=== PATIENT | male | born 1985 | race Caucasian/White ===

== ENCOUNTER 2016-05-06 00:02 | Emergency (ER) | payer OTHER ==
[~2016-05-06] VITALS: Ht 172.7 cm; Wt 132.4 kg
[2016-05-06] MEDS ORDERED: BREO1INH INH (00:27)
[2016-05-06] MEDS ORDERED: ALBU83IN INH (00:27)
[2016-05-06] MEDS ORDERED: LEVO175T2 PO (00:27)
[2016-05-06] MEDS ORDERED: ZYRT10TA2 PO (00:27)
== END 2016-05-06 02:15 | disposition left against medical advice (07) ==
LOC: M ED 01:05
DX: Z53.21 Procedure and treatment not carried out due to patient leaving prior to being seen by health care provider (principal)

== ENCOUNTER → 2016-08-14 | Outpatient (REF) | payer OTHER ==
[~2016-08-14] MED LIST: ALBU83IN INH; BREO1INH INH; LEVO175T2 PO; ZYRT10TA2 PO
== END ==
LOC: M LAB REF 17:16
PROVIDERS: ATTEND Internal Medicine
DX: E89.0 Postprocedural hypothyroidism (principal)

== ENCOUNTER → 2020-05-05 | Outpatient (CLI) | payer OTHER ==
[~2020-05-05] MED LIST changes: +ADV250INH INH; +CETI10CH PO; +OMEP40CA97 PO; +ZYRT10CA5 PO; -ZYRT10TA2 PO
== END ==
LOC: M LABSMTC 09:12
PROVIDERS: ATTEND Anesthesiology
DX: Z01.812 Encounter for preprocedural laboratory examination (principal); Z20.822 Contact with and (suspected) exposure to COVID-19

== ENCOUNTER 2020-05-10 06:42 | Day surgery (SDC) | payer OTHER ==
[~2020-05-10] VITALS: Ht 175.3 cm; Wt 122.9 kg
[~2020-05-10 06:42] MED LIST changes: +NS 1,000 ML IV ONE
[2020-05-10] MEDS ORDERED: fentaNYL 100 MCG/2 ML INJECTION (J3010) As Ordered ONE (07:11)
[2020-05-10] MEDS ORDERED: LIDOCAINE 2% 100MG/5ML SDV (FOR ANES.) As Ordered ONE (07:46)
[2020-05-10] MEDS ORDERED: propofoL 200 MG/20 ML VIAL As Ordered ONE ×3 (07:46→08:05)
--- NOTE | 2020-05-10 07:48 | ROOR ---
Patient Name: Santos Jiménez Procedure Date: 05/10/2020 7:29 AM Date of : 1985 Age: 34 Room: [facility] Gender: Male Note Status: Finalized Procedure: Upper Endoscopy + Biopsies Indications: Heartburn, Exclusion of Mahan's esophagus Providers: Eagle Vazquez MD Referring MD: Lise Silver DO Requesting Provider: Medicines: Monitored Anesthesia Care Complications: No immediate complications. Procedure: Pre-Anesthesia Assessment: - The heart rate, respiratory rate, oxygen saturations, blood pressure, adequacy of pulmonary ventilation, and response to care were monitored throughout the procedure. The Endoscope was introduced through the mouth, and advanced to the second part of duodenum. The upper GI endoscopy was accomplished without difficulty. The patient tolerated the procedure well. Findings: The Z-line was irregular and was found 40 cm from the incisors. Multiple biopsies were obtained with cold forceps for evaluation to rule out Mahan's Esophagus randomly at the gastroesophageal junction. Multiple small pedunculated and sessile fundic gland polyps with no stigmata of recent bleeding were found on the greater curvature of the stomach. Biopsies were taken with a cold forceps for histology. The exam of the duodenum was otherwise normal. Impression: - Z-line irregular, 40 cm from the incisors. - Multiple fundic gland polyps. Biopsied. - Multiple biopsies were obtained at the gastroesophageal junction. - The examination was otherwise normal. Recommendation: - Await pathology results. - Discharge patient to home. - Continue present medications. - Await pathology results. - Telephone GI clinic for pathology results in 1 week. - Return to referring physician. - The findings and recommendations were discussed with the patient. Procedure Code(s): --- Professional --- 20995, Esophagogastroduodenoscopy, flexible, transoral; with biopsy, single or multiple Diagnosis Code(s): --- Professional --- K22.8, Other specified diseases of esophagus K31.7, Polyp of stomach and duodenum R12, Heartburn CPT copyright 2019 [employer]. All rights reserved. The codes documented in this report are preliminary and upon national stormwater leader review may be revised to meet current compliance requirements. Eagle Vazquez MD Eagle Vazquez MD 05/10/2020 7:48:04 AM Electronically signed by Eagle Vazquez MD Number of Addenda: 0 Note Initiated On: 05/10/2020 7:29 AM Estimated Blood Loss: Estimated blood loss: none.
--- NOTE | 2020-05-10 08:25 | ROOR ---
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 Procedure: Pre-Anesthesia Assessment: - The heart rate, respiratory rate, oxygen saturations, blood pressure, adequacy of pulmonary ventilation, and response to care were monitored throughout the procedure. The Colonoscope was introduced through the anus and advanced to the cecum, identified by appendiceal orifice and ileocecal valve. The colonoscopy was performed without difficulty. The patient tolerated the procedure well. The quality of the bowel preparation was good. Findings: The perianal and digital rectal examinations were normal. Multiple sessile polyps were found in the entire colon. The polyps were small in size. These polyps were removed with a cold snare. Resection and retrieval were complete. To prevent bleeding after the polypectomy, three hemostatic clips were successfully placed (MR conditional). There was no bleeding at the end of the procedure. Multiple sessile polyps were found in the recto-sigmoid colon. The polyps were small in size. These polyps were removed with a jumbo cold forceps. Resection and retrieval were complete. The exam was otherwise without abnormality on direct and retroflexion views. The terminal ileum appeared normal. Impression: - Multiple small polyps in the entire colon, removed with a cold snare. Resected and retrieved. Clips (MR conditional) were placed. - Multiple small polyps at the recto-sigmoid colon, removed with a jumbo cold forceps. Resected and retrieved. - The examination was otherwise normal on direct and retroflexion views. - The examined portion of the ileum was normal. - The exam was otherwise normal to the cecum. Recommendation: - Patient has a contact number available for emergencies. The signs and symptoms of potential delayed complications were discussed with the patient. Return to normal activities tomorrow. Written discharge instructions were provided to the patient. - High fiber diet. - Discharge patient to home. - Continue present medications. - Await pathology results. - Telephone GI clinic for pathology results in 1 week. - Repeat colonoscopy date to be determined after pending pathology results are reviewed for surveillance. - Return to referring physician. - The findings and recommendations were discussed with the patient. Procedure Code(s): --- Professional --- 71130, Colonoscopy, flexible; with removal of tumor(s), polyp(s), or other lesion(s) by snare technique 54256, 59, Colonoscopy, flexible; with biopsy, single or multiple Diagnosis Code(s): --- Professional --- Z12.11, Encounter for screening for malignant neoplasm of colon K63.5, Polyp of colon CPT copyright 2019 [employer]. All rights reserved. The codes documented in this report are preliminary and upon fitness instructor review may be revised to meet current compliance requirements. Eagle Vazquez MD Eagle Vazquez MD 05/10/2020 8:25:38 AM Electronically signed by Eagle Vazquez MD Number of Addenda: 0 Note Initiated On: 05/10/2020 7:30 AM Estimated Blood Loss: Estimated blood loss: none.
[2020-05-10 08:45] VITALS: BP 118/65
== END 2020-05-10 08:52 | disposition home or self-care (01) ==
LOC: M OPP 06:42
PROVIDERS: ATTEND Internal Medicine Gastroenterology
DX: Z12.11 Encounter for screening for malignant neoplasm of colon (principal); D12.6 Benign neoplasm of colon, unspecified; K22.8 Other specified diseases of esophagus; K31.7 Polyp of stomach and duodenum; R12 Heartburn; E03.9 Hypothyroidism, unspecified; Z79.899 Other long term (current) drug therapy; Z88.5 Allergy status to narcotic agent
CPT/HCPCS: 43239; 45380; 45385; 88305; J3010

== ENCOUNTER 2020-08-04 20:29 | Emergency (ER) | payer OTHER ==
[~2020-08-04] VITALS: Ht 172.7 cm; Wt 127.7 kg
[~2020-08-04 20:29] MED LIST changes: -NS 1,000 ML IV ONE
[2020-08-04] MEDS ORDERED: ZITHTAB2 PO (20:39)
[2020-08-04] MEDS ORDERED: PRED20TA (20:39)
--- NOTE | 2020-08-04 21:14 | REPVR ---
PROCEDURE INFORMATION: Exam: XR Chest Exam date and time: 08/04/2020 9:01 PM Age: 34 years old Clinical indication: Other: Cough; Additional info: Cough, covid pos TECHNIQUE: Imaging protocol: XR of the chest. Views: 1 view. COMPARISON: No relevant prior studies available. FINDINGS: Lungs: Unremarkable. No consolidation. Pleural spaces: Unremarkable. No pleural effusion. No pneumothorax. Heart/Mediastinum: Unremarkable. No cardiomegaly. Bones/joints: Unremarkable. IMPRESSION: No acute findings. Electronically signed by: Kale Nolasco On 08/04/2020 21:13:49 PM
[2020-08-04] MEDS: COMBIVENT RESPIMAT 100-20MCG INHALER 4GM INH SCH ×3 (21:31→22:11)
[2020-08-04 21:42] LABS: BASO % 0.2 % (0.0-1.0); EOS % 0.2 % (0.0-3.0); HEMATOCRIT 39.8 % (42.0-52.0); HEMOGLOBIN 12.6 g/dl (13.5-17.5); LYMPH # 1.4 10^3/uL (1.5-5.0); LYMPH % 15.4 % (24.0-44.0); MEAN CORPUSCULAR HGB CONC 31.7 g/dl (32.0-36.5); MEAN CORPUSCULAR VOLUME 88.4 fl (80.0-96.0); MONO # 0.6 10^3/uL (0.0-0.8); MONO % 6.5 % (2.0-8.0); NEUTROPHILS # 6.8 10^3/uL (1.5-8.5); NEUTROPHILS % 77.1 % (36.0-66.0); PLATELET COUNT, AUTOMATED 154 10^3/uL (150-450); WHITE BLOOD COUNT 8.8 10^3/uL (4.0-10.0)
[2020-08-04 21:59] LABS: PARTIAL THROMBOPLASTIN TIME 28.6 SECONDS (24.2-38.5); PROTHROMBIN TIME 14.4 SECONDS (12.5-14.3)
[2020-08-04 22:11] LABS: ALBUMIN 3.9 GM/DL (3.2-5.2); ALT/SGPT 23 U/L (12-78); BILIRUBIN,TOTAL 0.4 MG/DL (0.2-1.0); BLOOD UREA NITROGEN 15 MG/DL (7-18); C REACTIVE PROTEIN QUANTITATIV 0.34 MG/DL (0.00-0.30); CALCIUM LEVEL 8.3 MG/DL (8.5-10.1); CARBON DIOXIDE LEVEL 26 MEQ/L (21-32); CHLORIDE LEVEL 108 MEQ/L (98-107); CK-MB VALUE MASS 1.9 NG/ML (<3.6); CPK CREATINE PHOSPHOKINASE 97 U/L (39-308); CREATININE FOR GFR 0.76 MG/DL (0.70-1.30); FERRITIN 22 NG/ML (26-388); GLOMERULAR FILTRATION RATE > 60.0 (>60); GLUCOSE, FASTING 98 MG/DL (70-100); LDH LACTATE DEHYDROGENASE 155 U/L (87-241); MB/CK RELATIVE INDEX 1.96 (< OR =4); POTASSIUM SERUM 3.8 MEQ/L (3.5-5.1); SODIUM LEVEL 141 MEQ/L (136-145); TOTAL PROTEIN 6.7 GM/DL (6.4-8.2); TROPONIN I < 0.02 NG/ML (< 0.10)
[2020-08-04] MEDS ORDERED: ISOVUE-370 76% 100ML VIAL As Ordered ONE (22:33)
[2020-08-04 22:52] LABS: D-DIMER QUANT < 270 ng/ml (<500)
[2020-08-04 23:00] VITALS: BP 166/72
--- NOTE | 2020-08-04 23:42 | REPVR ---
PROCEDURE INFORMATION: Exam: CTA Chest With Contrast Exam date and time: 08/04/2020 11:12 PM Age: 34 years old Clinical indication: Right sided chest pain/ covid/ R/O pe TECHNIQUE: Imaging protocol: Computed tomographic angiography of the chest with contrast. 3D rendering (Not supervised by radiologist): MIP and/or 3D reconstructed images were created by the technologist. Radiation optimization: All CT scans at this facility use at least one of these dose optimization techniques: automated exposure control; mA and/or kV adjustment per patient size (includes targeted exams where dose is matched to clinical indication); or iterative reconstruction. Contrast material: ISOVUE 370; Contrast volume: 75 ml; Contrast route: INTRAVENOUS (IV); COMPARISON: CR Chest, 2 view PA, Lat 08/04/2020 8:53 PM FINDINGS: Pulmonary arteries: No pulmonary embolism. Aorta: The thoracic aorta is intact and patent. There is no thoracic aortic aneurysm, pseudoaneurysm, penetrating atherosclerotic ulcer, intramural hematoma, or dissection. Great vessels off aortic arch: The brachiocephalic artery, imaged proximal portions of the common carotid arteries, imaged proximal portions of the vertebral arteries, and right subclavian artery are intact. No stenosis or occlusion of these vessels is noted. The left subclavian artery is obscured by streak artifact from contrast material in the left subclavian vein. Trachea: Normal. Bronchial tree: Normal. Lungs: The lungs are clear. There is no lung consolidation, pulmonary infarct, or mass. No emphysematous changes or interstitial lung disease is noted. Pleural spaces: Normal. No pneumothorax or pleural effusion. Heart: No cardiomegaly or pericardial effusion. The ratio of the diameter of the right ventricle to the diameter of the left ventricle measures less than 1, which is within normal limits and there is no CT evidence for a right ventricular strain. Mediastinal space: No mediastinal mass, fluid collection, or pneumomediastinum. Lymph nodes: No enlarged lymph nodes. Adrenal glands: Normal. No adrenal mass is noted. Bones/joints: There is no fracture or dislocation. No suspicious osteolytic or osteoblastic lesion. There are Schmorl's nodes at several levels in the thoracic spine. Soft tissues: There is severe bilateral gynecomastia. IMPRESSION: 1. No acute findings in the chest. No pulmonary embolism. 2. No CT findings present to indicate pneumonia. (Note: CT may be negative in the early stages of COVID-19.) (Reference: Charles) 3. Severe bilateral gynecomastia. REFERENCES: Charles Wayne, et al., Rad[employer] Society of [place] Expert Consensus Statement on Reporting Chest CT Findings Related to COVID-19. Endorsed by the Society of Thoracic Radiology, the [place] [employer], and RSNA. Published May 31, 2019. Electronically signed by: Reilly Gonzalez On 08/04/2020 23:41:57 PM
[2020-08-05] MEDS ORDERED: KETO10TAB PO (00:13)
[2020-08-05] MEDS ORDERED: KETOROLAC 30 MG/ML 1ML VIAL IV ONE (00:15)
--- NOTE | 2020-08-05 08:24 | ED PDOC ---
Post-Departure Follow-Up rdiology report faxed to Padmini Sorenson MD August 05, 2020 08:24
--- NOTE | 2020-08-05 09:34 | ECGEPIP ---
[facility] - ED Test Date: 2020-08-04 Pat Name: LIANE BOOTH Department: Room: - Gender: Male Hand Tacker: : 1985 Requested By: MARICARMEN Samson Order Number: [id number] Reading MD: Padmini Dale Measurements Intervals [place] Rate: 81 P: 52 KS: 136 QRS: 47 QRSD: 112 T: 5 QT: 366 QTc: 425 Interpretive Statements Normal sinus rhythm with sinus arrhythmia ivcd No prior Electronically Signed on 08-05-2020 9:34:04 EDT by Padmini Dale
== END 2020-08-05 00:40 | disposition home or self-care (01) ==
LOC: M ED 20:29
DX: U07.1 COVID-19 (principal); J45.909 Unspecified asthma, uncomplicated; E03.9 Hypothyroidism, unspecified; Z79.899 Other long term (current) drug therapy; Z79.890 Hormone replacement therapy; Z88.5 Allergy status to narcotic agent
CPT/HCPCS: 71045; 71275; 80053; 82550; 82553; 82728; 83605; 83615; 84145; 84484; 85025; 85379; 85610; 85730; 86140; 93005; 93041; 94640; 94760; 96374; 99285; J1885; Q9967

== ENCOUNTER → 2020-10-18 | Outpatient (REF) | payer OTHER ==
[~2020-10-18] MED LIST changes: +KETO10TAB PO; +OMEP40CA4 PO; -OMEP40CA97 PO; +PRED20TA; +ZITHTAB2 PO
== END ==
LOC: M LAB REF 15:28
PROVIDERS: ATTEND Otolaryngology
DX: D49.0 Neoplasm of unspecified behavior of digestive system (principal)

== ENCOUNTER 2020-11-01 21:38 | Emergency (ER) | payer OTHER ==
[~2020-11-01] VITALS: Ht 172.7 cm; Wt 123.1 kg
[2020-11-02 01:59] VITALS: BP 144/94
== END 2020-11-02 02:03 | disposition left against medical advice (07) ==
LOC: M ED 21:38
DX: Z53.29 Procedure and treatment not carried out because of patient's decision for other reasons (principal)

== ENCOUNTER → 2020-12-15 | Outpatient (REF) | payer OTHER ==
[2020-12-15 16:59] LABS: RSV AMPLIFICATION POSITIVE (NEGATIVE)
== END ==
LOC: M LAB REF 16:18
PROVIDERS: ATTEND Physician Assistant
DX: R05.9 Cough, unspecified (principal)

== ENCOUNTER 2021-05-02 06:15 | Emergency (ER) | payer OTHER ==
[~2021-05-02] VITALS: Ht 172.7 cm; Wt 125.5 kg
[2021-05-02 06:16] VITALS: BP 136/60
[2021-05-02] MEDS ORDERED: KETOROLAC 30 MG/ML 1ML VIAL IV ONE (07:15)
[2021-05-02] MEDS ORDERED: NS 1,000 ML IV ONE (07:15)
[2021-05-02] MEDS ORDERED: PANTOPRAZOLE 40MG VIAL (C9113 PER 1) IV ONE (07:15)
[2021-05-02 07:56] LABS: BASO % 0.2 % (0.0-1.0); EOS # 0.1 10^3/uL (0.0-0.5); EOS % 0.8 % (0.0-3.0); HEMATOCRIT 41.4 % (42.0-52.0); HEMOGLOBIN 13.3 g/dl (13.5-17.5); LYMPH # 0.8 10^3/uL (1.5-5.0); LYMPH % 12.2 % (24.0-44.0); MEAN CORPUSCULAR HEMOGLOBIN 27.9 pg (27.0-33.0); MEAN CORPUSCULAR HGB CONC 32.1 g/dl (32.0-36.5); MEAN CORPUSCULAR VOLUME 86.8 fl (80.0-96.0); MONO # 0.5 10^3/uL (0.0-0.8); MONO % 8.5 % (2.0-8.0); NEUTROPHILS # 4.8 10^3/uL (1.5-8.5); PLATELET COUNT, AUTOMATED 134 10^3/uL (150-450); RED BLOOD COUNT 4.77 10^6/uL (4.30-6.10); WHITE BLOOD COUNT 6.1 10^3/uL (4.0-10.0)
[2021-05-02 08:33] LABS: ALBUMIN 3.7 GM/DL (3.2-5.2); BILIRUBIN,DIRECT 0.2 MG/DL (0.0-0.2); BILIRUBIN,TOTAL 1.1 MG/DL (0.2-1.0); TOTAL PROTEIN 6.9 GM/DL (6.4-8.2)
[2021-05-02] MEDS ORDERED: ISOVUE-370 76% 100ML VIAL As Ordered ONE (08:43)
== END 2021-05-02 11:24 | disposition home or self-care (01) ==
LOC: M ED 06:15
DX: R10.11 Right upper quadrant pain (principal); K76.0 Fatty (change of) liver, not elsewhere classified; I88.0 Nonspecific mesenteric lymphadenitis; N28.9 Disorder of kidney and ureter, unspecified; E03.9 Hypothyroidism, unspecified; K21.9 Gastro-esophageal reflux disease without esophagitis; J45.909 Unspecified asthma, uncomplicated; Z88.6 Allergy status to analgesic agent; Z79.890 Hormone replacement therapy; Z79.899 Other long term (current) drug therapy
CPT/HCPCS: 74177; 76705; 80047; 80076; 83605; 83690; 85025; 87426; 93041; 96361; 96374; 96375; 99284; C9113; J1885; Q9967

== ENCOUNTER → 2021-06-02 | Outpatient (CLI) | payer OTHER | LOC: M RAD 07:12 | PROVIDERS: ATTEND Internal Medicine | DX: N28.9 Disorder of kidney and ureter, unspecified (principal) ==

== ENCOUNTER → 2021-12-12 | Outpatient (CLI) | payer OTHER ==
[~2021-12-12] MED LIST changes: +ALBU2.5V10 INH; -ALBU83IN INH
== END ==
LOC: M RAD 07:30
PROVIDERS: ATTEND Internal Medicine
DX: N28.1 Cyst of kidney, acquired (principal)

== ENCOUNTER → 2022-01-05 | Outpatient (CLI) | payer OTHER ==
[~2022-01-05] MED LIST changes: +PROHANCE 279.3MG/ML 15ML VIAL ONE; +PROHANCE 279.3MG/ML 5ML VIAL ONE
== END ==
LOC: M PLAIMG 08:39
PROVIDERS: ATTEND Internal Medicine
DX: D18.09 Hemangioma of other sites (principal)

== ENCOUNTER → 2022-02-05 | Outpatient (REF) | payer OTHER ==
[~2022-02-05] MED LIST changes: -PROHANCE 279.3MG/ML 15ML VIAL ONE; -PROHANCE 279.3MG/ML 5ML VIAL ONE
[2022-02-05 15:28] LABS: APPEARANCE, URINE MANUAL CLEAR (CLEAR); BILIRUBIN, URINE MANUAL NEGATIVE (NEGATIVE); BLOOD URINE MANUAL NEGATIVE (NEGATIVE); COLOR, URINE MANUAL YELLOW (YELLOW); GLUCOSE, URINE (UA) MANUAL NEGATIVE (NEGATIVE); KETONE, URINE MANUAL NEGATIVE (NEGATIVE); LEUKOCYTE ESTERASE, URINE MAN NEGATIVE (NEGATIVE); NITRITE, URINE MANUAL NEGATIVE (NEGATIVE); PROTEIN, URINE MANUAL NEGATIVE (NEGATIVE); SPECIFIC GRAVITY,URINE MANUAL 1.025 (1.002-1.035); UROBILINOGEN, URINE MANUAL NORMAL (NORMAL)
== END ==
LOC: M LAB REF 13:03
PROVIDERS: ATTEND Internal Medicine
DX: Z01.818 Encounter for other preprocedural examination (principal)

== ENCOUNTER → 2022-02-06 | Outpatient (REF) | payer OTHER | LOC: M WUC 12:12 | PROVIDERS: ATTEND Physician Assistant | DX: J06.9 Acute upper respiratory infection, unspecified (principal); R05.9 Cough, unspecified ==

== ENCOUNTER 2022-02-08 21:01 | Emergency (ER) | payer OTHER ==
[~2022-02-08] VITALS: Ht 172.7 cm; Wt 131.1 kg
[2022-02-08 21:03] VITALS: BP 158/75
== END 2022-02-09 | disposition left against medical advice (07) ==
LOC: M ED 21:01
DX: Z53.21 Procedure and treatment not carried out due to patient leaving prior to being seen by health care provider (principal)

== ENCOUNTER → 2022-05-20 | Outpatient (CLI) | payer OTHER ==
[2022-05-20 16:51] LABS: BASO # 0.1 10^3/uL (0.0-0.2); BASO % 0.7 % (0.0-1.0); EOS # 0.1 10^3/uL (0.0-0.5); EOS % 1.4 % (0.0-3.0); HEMATOCRIT 42.1 % (42.0-52.0); HEMOGLOBIN 13.4 g/dl (13.5-17.5); LYMPH % 27.8 % (24.0-44.0); MEAN CORPUSCULAR HEMOGLOBIN 28.2 pg (27.0-33.0); MEAN CORPUSCULAR HGB CONC 31.8 g/dl (32.0-36.5); MEAN CORPUSCULAR VOLUME 88.4 fl (80.0-96.0); MONO # 0.6 10^3/uL (0.0-0.8); MONO % 7.8 % (2.0-8.0); NEUTROPHILS # 4.5 10^3/uL (1.5-8.5); NEUTROPHILS % 61.9 % (36.0-66.0); PLATELET COUNT, AUTOMATED 152 10^3/uL (150-450); RED BLOOD COUNT 4.76 10^6/uL (4.30-6.10); WHITE BLOOD COUNT 7.3 10^3/uL (4.0-10.0)
[2022-05-20 18:12] LABS: ALKALINE PHOSPHATASE 59 U/L (46-116); ALT/SGPT 37 U/L (7.0-40); AST/SGOT 23 U/L (<34); BILIRUBIN,TOTAL 0.6 MG/DL (0.3-1.2); BLOOD UREA NITROGEN 17 MG/DL (9-23); CALCIUM LEVEL 9.3 MG/DL (8.5-10.1); CARBON DIOXIDE LEVEL 29 MMOL/L (20-31); CHLORIDE LEVEL 106 MMOL/L (98-107); CREATININE FOR GFR 0.87 MG/DL (0.70-1.30); GLOMERULAR FILTRATION RATE > 60.0 (>60); GLUCOSE, FASTING 84 MG/DL (60-100); POTASSIUM SERUM 4.4 MMOL/L (3.5-5.1); SODIUM LEVEL 141 MMOL/L (136-145); TOTAL PROTEIN 6.7 G/DL (5.7-8.2)
== END ==
LOC: M RAD 15:57
PROVIDERS: ATTEND Physician Assistant Medical
DX: C64.2 Malignant neoplasm of left kidney, except renal pelvis (principal)

== ENCOUNTER → 2022-11-19 | Outpatient (CLI) | payer OTHER ==
[2022-11-19 17:08] LABS: HEMATOCRIT 40.6 % (42.0-52.0); HEMOGLOBIN 13.1 g/dl (13.5-17.5); MEAN CORPUSCULAR HEMOGLOBIN 28.2 pg (27.0-33.0); MEAN CORPUSCULAR HGB CONC 32.3 g/dl (32.0-36.5); MEAN CORPUSCULAR VOLUME 87.5 fl (80.0-96.0); PLATELET COUNT, AUTOMATED 156 10^3/uL (150-450); RED BLOOD COUNT 4.64 10^6/uL (4.30-6.10); WHITE BLOOD COUNT 7.2 10^3/uL (4.0-10.0)
[2022-11-19 17:30] LABS: BLOOD UREA NITROGEN 18 MG/DL (9-23); CALCIUM LEVEL 9.2 MG/DL (8.5-10.1); CARBON DIOXIDE LEVEL 29 MMOL/L (20-31); CHLORIDE LEVEL 108 MMOL/L (98-107); CREATININE FOR GFR 0.87 MG/DL (0.70-1.30); GLOMERULAR FILTRATION RATE > 60.0 (>60); GLUCOSE, FASTING 89 MG/DL (60-100); POTASSIUM SERUM 4.1 MMOL/L (3.5-5.1); SODIUM LEVEL 143 MMOL/L (136-145)
== END ==
LOC: M LAB 16:04
PROVIDERS: ATTEND Physician Assistant Medical
DX: C64.2 Malignant neoplasm of left kidney, except renal pelvis (principal)

== ENCOUNTER → 2022-11-23 | Outpatient (CLI) | payer OTHER ==
[~2022-11-23] MED LIST changes: +GASTROGRAFIN SOLUTION 30ML As Ordered ONE; +ISOVUE-370 76% 100ML VIAL As Ordered ONE
== END ==
LOC: M RAD 10:59
PROVIDERS: ATTEND Physician Assistant Medical
DX: C64.2 Malignant neoplasm of left kidney, except renal pelvis (principal)

== ENCOUNTER → 2022-11-26 | Outpatient (CLI) | payer OTHER ==
[~2022-11-26] MED LIST changes: -GASTROGRAFIN SOLUTION 30ML As Ordered ONE; -ISOVUE-370 76% 100ML VIAL As Ordered ONE
== END ==
LOC: M RAD 15:16
PROVIDERS: ATTEND Physician Assistant Medical
DX: C64.2 Malignant neoplasm of left kidney, except renal pelvis (principal)

== ENCOUNTER 2023-03-02 06:51 | Emergency (ER) | payer OTHER ==
[~2023-03-02] VITALS: Ht 172.7 cm; Wt 134.5 kg
[2023-03-02] MEDS ORDERED: LIDOCAINE 2% MDV 20ML VIAL SC ONE (07:45)
[2023-03-02] MEDS ORDERED: BOOSTRIX VACCINE (TETANUS/DIPHTH/ACEL. PERTUSSIS) 0.5ML SYR IM.IMMUN ONE (08:00)
[2023-03-02] MEDS ORDERED: ceFAZolin SOD 1 GM in D5W MINI-BAG PLUS 50 ML IV ONE (08:00)
[2023-03-02] MEDS ORDERED: CEPH500C PO (09:24)
[2023-03-02 10:02] VITALS: BP 123/58; TEMP 97.7; O2SAT 98
== END 2023-03-02 10:03 | disposition home or self-care (01) ==
LOC: M ED 06:51
DX: S61.012A Laceration without foreign body of left thumb without damage to nail, initial encounter (principal); S64.32XA Injury of digital nerve of left thumb, initial encounter; W26.0XXA Contact with knife, initial encounter; F17.200 Nicotine dependence, unspecified, uncomplicated; K21.9 Gastro-esophageal reflux disease without esophagitis; J45.909 Unspecified asthma, uncomplicated; F10.10 Alcohol abuse, uncomplicated; Y92.009 Unspecified place in unspecified non-institutional (private) residence as the place of occurrence of the external cause; Y93.89 Activity, other specified; Y99.9 Unspecified external cause status; Z88.5 Allergy status to narcotic agent; Z79.52 Long term (current) use of systemic steroids; Z79.83 Long term (current) use of bisphosphonates; Z79.2 Long term (current) use of antibiotics
CPT/HCPCS: 12002; 73130; 90471; 90715; 96365; 99284; J0690

== ENCOUNTER 2023-03-05 09:19 | Day surgery (SDC) | payer OTHER ==
[~2023-03-05] VITALS: Ht 172.7 cm; Wt 136.1 kg
[~2023-03-05 09:19] MED LIST changes: +CEPH500C PO
[2023-03-05] MEDS ORDERED: LR 1,000 ML IV SCH ×2 (09:50→12:20)
[2023-03-05] MEDS ORDERED: ceFAZolin SOD 2 GM in IV 1 EA IV ONE (09:55)
[2023-03-05] MEDS ORDERED: ceFAZolin SOD 1 GM in D5W MINI-BAG PLUS 50 ML IV ONE (09:55)
[2023-03-05] MEDS ORDERED: propofoL 200 MG/20 ML VIAL As Ordered ONE ×2 (10:04→10:23)
[2023-03-05] MEDS ORDERED: KETOROLAC 60MG 2ML VIAL As Ordered ONE (10:04)
[2023-03-05] MEDS ORDERED: LIDOCAINE 2% 100MG/5ML SDV (FOR ANES.) As Ordered ONE (10:04)
[2023-03-05] MEDS ORDERED: ONDANSETRON 4MG 2ML VIAL As Ordered ONE (10:04)
[2023-03-05] MEDS ORDERED: MIDAZOLAM INJ 2MG/2ML VIAL As Ordered ONE (10:12)
[2023-03-05] MEDS ORDERED: fentaNYL 100 MCG/2 ML INJECTION As Ordered ONE ×2 (10:12→11:04)
[2023-03-05] MEDS ORDERED: ROCURONIUM BROMIDE 50MG/5ML VIAL As Ordered ONE (10:20)
[2023-03-05] MEDS ORDERED: SUGAMMADEX SODIUM 500 MG/5 ML VIAL (BRIDION) As Ordered ONE (10:20)
[2023-03-05] MEDS ORDERED: ACETAMINOPHEN 1000MG 100ML IV BAG As Ordered ONE (10:55)
[2023-03-05] MEDS ORDERED: SUCCINYLCHOLINE 100MG/5ML SYRINGE As Ordered ONE (10:56)
[2023-03-05] MEDS ORDERED: BACITRACIN OINTMENT 30GM TUBE As Ordered ONE (11:42)
[2023-03-05] MEDS ORDERED: oxyCODONE 5MG TAB PO PRN (12:20)
[2023-03-05] MEDS ORDERED: METOCLOPRAMIDE INJ 10MG/2ML VIAL IV PRN (12:20)
[2023-03-05] MEDS ORDERED: ONDANSETRON 4MG 2ML VIAL IV PRN (12:20)
[2023-03-05] MEDS ORDERED: PERC5TAB12 PO (12:40)
[2023-03-05] MEDS: fentaNYL 100 MCG/2 ML INJECTION IV PRN ×3 (12:52→13:20)
[2023-03-05] MEDS: oxyCODONE 5MG TAB PO PRN ×2 (12:53→13:24)
[2023-03-05 14:05] VITALS: BP 131/95; TEMP 97.3; O2SAT 93
== END 2023-03-05 14:30 | disposition home or self-care (01) ==
LOC: M SDC 09:19
PROVIDERS: ATTEND Orthopaedic Surgery Hand Surgery
DX: S61.012A Laceration without foreign body of left thumb without damage to nail, initial encounter (principal); S64.32XA Injury of digital nerve of left thumb, initial encounter; X58.XXXA Exposure to other specified factors, initial encounter; Y92.89 Other specified places as the place of occurrence of the external cause; Y93.89 Activity, other specified; Y99.8 Other external cause status; R06.83 Snoring; E03.9 Hypothyroidism, unspecified; K21.9 Gastro-esophageal reflux disease without esophagitis; J45.909 Unspecified asthma, uncomplicated; Z85.528 Personal history of other malignant neoplasm of kidney; Z79.899 Other long term (current) drug therapy; Z79.890 Hormone replacement therapy; Z79.51 Long term (current) use of inhaled steroids
CPT/HCPCS: 64912; C1762; J0131; J0330; J0690; J1100; J1885; J2250; J2405; J2765; J3010

== ENCOUNTER → 2023-07-16 | Outpatient (CLI) | payer OTHER ==
[~2023-07-16] MED LIST changes: +PERC5TAB12 PO
== END ==
LOC: M RAD 15:59
PROVIDERS: ATTEND Urology
DX: C64.2 Malignant neoplasm of left kidney, except renal pelvis (principal)

== ENCOUNTER → 2023-08-13 | Outpatient (REF) | payer OTHER ==
[2023-08-13 20:36] LABS: BASO % 0.5 % (0.0-1.0); EOS # 0.2 10^3/uL (0.0-0.5); EOS % 1.7 % (0.0-3.0); HEMATOCRIT 41.6 % (42.0-52.0); HEMOGLOBIN 13.4 g/dl (13.5-17.5); LYMPH # 2.2 10^3/uL (1.5-5.0); LYMPH % 24.4 % (24.0-44.0); MEAN CORPUSCULAR HEMOGLOBIN 27.7 pg (27.0-33.0); MEAN CORPUSCULAR HGB CONC 32.2 g/dl (32.0-36.5); MONO # 0.6 10^3/uL (0.0-0.8); MONO % 7.2 % (2.0-8.0); NEUTROPHILS # 5.8 10^3/uL (1.5-8.5); NEUTROPHILS % 65.7 % (36.0-66.0); PLATELET COUNT, AUTOMATED 155 10^3/uL (150-450); RED BLOOD COUNT 4.84 10^6/uL (4.30-6.10); WHITE BLOOD COUNT 8.8 10^3/uL (4.0-10.0)
== END ==
LOC: M LAB REF 19:10
PROVIDERS: ATTEND Internal Medicine
DX: Z85.528 Personal history of other malignant neoplasm of kidney (principal)

== ENCOUNTER 2023-09-27 09:03 | Day surgery (SDC) | payer OTHER ==
[~2023-09-27] VITALS: Ht 172.7 cm; Wt 127.0 kg
[~2023-09-27 09:03] MED LIST changes: +FLUT1BLS5 INH; +LEVOTAB10 PO; +NS 1,000 ML IV ONE; +propofoL 200 MG/20 ML VIAL As Ordered ONE
[2023-09-27] MEDS ORDERED: LIDOCAINE 2% 100MG/5ML SDV (FOR ANES.) As Ordered ONE (10:07)
[2023-09-27 10:25] VITALS: TEMP 97.6
[2023-09-27 10:45] VITALS: BP 124/66; O2SAT 99
== END 2023-09-27 10:55 | disposition home or self-care (01) ==
LOC: M OPP 09:03
PROVIDERS: ATTEND Internal Medicine Gastroenterology
DX: Z12.11 Encounter for screening for malignant neoplasm of colon (principal); Z86.010 Personal history of colon polyps; D12.6 Benign neoplasm of colon, unspecified; K64.0 First degree hemorrhoids; Q85.82 Other Cowden syndrome; K44.9 Diaphragmatic hernia without obstruction or gangrene; K31.7 Polyp of stomach and duodenum; K22.89 Other specified disease of esophagus; Z79.51 Long term (current) use of inhaled steroids; Z79.890 Hormone replacement therapy; Z88.5 Allergy status to narcotic agent

== ENCOUNTER → 2023-10-25 | Outpatient (REF) | payer OTHER ==
[~2023-10-25] MED LIST changes: -NS 1,000 ML IV ONE; -propofoL 200 MG/20 ML VIAL As Ordered ONE
== END ==
LOC: M LAB REF 11:53
PROVIDERS: ATTEND Internal Medicine
DX: E89.0 Postprocedural hypothyroidism (principal)

== ENCOUNTER → 2023-12-29 | Outpatient (CLI) | payer OTHER ==
[~2023-12-29] MED LIST changes: +ISOVUE-370 76% 100ML VIAL As Ordered ONE
== END ==
LOC: M RAD 10:57
PROVIDERS: ATTEND Urology
DX: C64.2 Malignant neoplasm of left kidney, except renal pelvis (principal)

== ENCOUNTER → 2024-01-17 | Outpatient (CLI) | payer OTHER ==
[~2024-01-17] MED LIST changes: -ADV250INH INH; +ADVA1AER9 INH; -ISOVUE-370 76% 100ML VIAL As Ordered ONE
== END ==
LOC: M SLEEP 20:00
PROVIDERS: ATTEND Internal Medicine Pulmonary Disease
DX: R06.83 Snoring (principal)

== ENCOUNTER → 2024-02-14 | Outpatient (CLI) | payer OTHER | LOC: M PLARAD 14:53 | PROVIDERS: ATTEND Internal Medicine Hematology & Oncology | DX: Q85.81 PTEN hamartoma tumor syndrome (principal) | CPT/HCPCS: 78815; A9552 ==

== ENCOUNTER → 2024-02-28 | Outpatient (CLI) | payer OTHER ==
[2024-02-28 16:44] LABS: BLOOD UREA NITROGEN 18 MG/DL (9-23); CALCIUM LEVEL 9.1 MG/DL (8.5-10.1); CARBON DIOXIDE LEVEL 30 MMOL/L (20-31); CHLORIDE LEVEL 108 MMOL/L (98-107); CREATININE FOR GFR 0.81 MG/DL (0.70-1.30); GLOMERULAR FILTRATION RATE > 60.0 (>60); GLUCOSE, FASTING 88 MG/DL (60-100); POTASSIUM SERUM 4.2 MMOL/L (3.5-5.1); SODIUM LEVEL 143 MMOL/L (136-145)
== END ==
LOC: M RAD 15:55
PROVIDERS: ATTEND Urology
DX: C64.2 Malignant neoplasm of left kidney, except renal pelvis (principal)

== ENCOUNTER → 2024-10-16 | Outpatient (CLI) | payer OTHER | LOC: M PLARAD 15:01 | PROVIDERS: ATTEND Internal Medicine Hematology & Oncology | DX: Q85.81 PTEN hamartoma tumor syndrome (principal) | CPT/HCPCS: 78816; A9552 ==

== ENCOUNTER → 2024-10-25 | Outpatient (CLI) | payer OTHER | LOC: M RAD 16:11 | PROVIDERS: ATTEND Urology | DX: C64.2 Malignant neoplasm of left kidney, except renal pelvis (principal) ==

== ENCOUNTER 2024-12-20 08:44 | Emergency (ER) | payer OTHER ==
[~2024-12-20] VITALS: Ht 175.3 cm; Wt 136.0 kg
[2024-12-20 10:33] VITALS: BP 141/78; TEMP 97.3; O2SAT 99
== END 2024-12-20 10:36 | disposition home or self-care (01) ==
LOC: M ED 08:44
DX: S99.922A Unspecified injury of left foot, initial encounter (principal); Y92.9 Unspecified place or not applicable; Y93.9 Activity, unspecified; Y99.0 Civilian activity done for income or pay; W01.0XXA Fall on same level from slipping, tripping and stumbling without subsequent striking against object, initial encounter; Z88.5 Allergy status to narcotic agent; Z79.51 Long term (current) use of inhaled steroids; Z79.899 Other long term (current) drug therapy